=== PATIENT | male | born 1990 | race Caucasian/White ===

== ENCOUNTER 2024-09-04 13:04 | Emergency (ER) | payer OTHER, SELFPAY ==
--- NOTE | ~2024-09-04 | CT_ITS ---
EXAMINATION: CT abdomen pelvis w con DATE: 09/04/2024 14:42 INDICATION: Left lower quadrant abdominal pain. TECHNIQUE: Computed tomography (CT) of the abdomen and pelvis was performed with 100 mL Omnipaque 350 intravenous contrast. Automated exposure control and iterative reconstruction technique were employe d. The dose-length product was 1424.57 mGy-cm. COMPARISON: None. FINDINGS: The visualized portions of the lung bases demonstrate mild atelectasis. No pleural effusion . The heart size is normal. No pericardial effusion. There is diffuse hepatic steatosis. The gallblad molly, spleen, pancreas, adrenal glands, and kidneys are normal. There are bilateral inguinal hernias c ontaining fat. There is fat stranding around an epiploic appendage of distal descending colon, consis tent with epiploic appendagitis. The appendix is normal. There are no pathologically enlarged lymph n odes. There is no free intraperitoneal fluid. There is mild thoracic and lumbar spondylosis. IMPRESSION: 1. Epiploic appendagitis of distal descending colon. 2. Diffuse hepatic steatosis. Reviewed, dictated and finalized at location B.
[2024-09-04 13:09] VITALS: BP 153/87; PULSE 84; RESP 15; TEMP 36.4; O2SAT 98
--- NOTE | 2024-09-04 13:27 | ED_ITS ---
HPI - Abdominal Pain General Chief Complaint: Abdominal Pain <Milady Vega APRN - Last Filed: 09/04/24 13:39> Stated Complaint: abd pain <Milady Vega APRN - Last Filed: 09/04/24 13:39> Time Seen by Provider: 09/04/24 13:20 <Milady Vega APRN - Last Filed: 09/04/24 13:39> Focused HPI: Patient is a 34-year-old male who presents to the ER with complaints of left lower quadrant abdominal pain. He reports it started on Wednesday and has progressively gotten worse. Patient reports he went to his primary care provider earlier today who did not do any imaging and just put me on antibiotics. He reports his pain is 3/10 when he is sitting but increases to a 7 out of 10 with movement. Patient endorses diarrhea with his last bowel movement being this morning. He has no pertinent medical history related to this visit. GENERAL: Well-appearing, well-nourished, and in no acute distress. HEAD: Normocephalic, atraumatic. CHEST: Clear to auscultation. ?No respiratory distress. HEART: Regular rate and rhythm.? NEURO: ?Alert and oriented x3. Patient screened in triage and initial orders placed.? ?Additional care and disposition to be based upon?diagnostic testing and treatment. <Milady Vega APRN - Last Filed: 09/04/24 13:39> History of Present Illness HPI narrative: Agree with HPI <Gilles Barrera MD - Last Filed: 09/04/24 15:14> Related Data Home Medications: Home Medications Medication Instructions Recorded Confirmed sertraline 100 mg tablet mg 11/28/19 <Milady Vega APRN - Last Filed: 09/04/24 13:39> Allergies/Adverse Reactions: Allergies Allergy/AdvReac Type Severity Reaction Status Date / Time codeine Allergy Mild HIVES Verified 09/04/24 13:14 <Milady Vega APRN - Last Filed: 09/04/24 13:39> Review of Systems Review of Systems: All systems reviewed & are unremarkable except as noted in HPI and below <Gilles Barrera MD - Last Filed: 09/04/24 15:14> Constitutional: Constitutional: Reports no additional constitutional complaints <Gilles Barrera MD - Last Filed: 09/04/24 15:14> Cardiovascular: Cardiovascular: Reports no additional cardiovascular complaints <Gilles Barrera MD - Last Filed: 09/04/24 15:14> Respiratory: Respiratory: Reports no additional respiratory complaints <Gilles Barrera MD - Last Filed: 09/04/24 15:14> Gastrointestinal: Gastrointestinal: Reports no additional gastrointestinal complaints <Gilles Barrera MD - Last Filed: 09/04/24 15:14> Musculoskeletal: Musculoskeletal: Reports no additional musculoskeletal complaints <Gilles Barrera MD - Last Filed: 09/04/24 15:14> PMFSH Past Medical History Medical History: Medical History (Updated 09/04/24 @ 15:13 by Gilles Barrera MD) History of depression <Milady Vega, [employer] - Last Filed: 09/04/24 13:39> Social History Social History: Social History (Updated 11/28/19 @ 18:28 by Adry Grant PA-C) Smoking status: Current some day smoker Smokeless tobacco user: chewing tobacco Substance use: never <Milady Vega, [employer] - Last Filed: 09/04/24 13:39> Exam Narrative: GENERAL: Well-appearing, well-nourished, and in no acute distress. HEAD: Normocephalic, atraumatic. ENT: Mucous membranes moist. CHEST: Clear to auscultation. No respiratory distress. HEART: Regular rate and rhythm. Normal peripheral pulses. ABDOMEN: Soft, nontender, nondistended. EXTREMITIES: Normal range of motion. No edema. SKIN: Warm, dry, no rash. NEURO: Alert and oriented x3. PSYCH: Normal mood and affect. <Gilles Barrera MD - Last Filed: 09/04/24 15:14> Course Course Emergency Course: patient educated on diagnosis and treatment plan. Verbalized understanding. Does not need to take his antibiotics at home. Discharge. <Gilles Barrera MD - Last Filed: 09/04/24 15:14> Vital Signs Vital signs: Vital Signs Temperature 97.6 F 09/04/24 13:09 Pulse Rate 84 09/04/24 13:09 Respiratory Rate 15 09/04/24 13:09 Blood Pressure 153/87 H 09/04/24 13:09 Pulse Oximetry 98 09/04/24 13:09 Oxygen Delivery Room Air 09/04/24 13:09 Temperature 97.6 F 09/04/24 13:09 Pulse Rate 84 09/04/24 13:09 Respiratory Rate 15 09/04/24 13:09 Blood Pressure 153/87 H 09/04/24 13:09 Pulse Oximetry 98 09/04/24 13:09 Oxygen Delivery Room Air 09/04/24 13:09 <Milady Vega [employer] - Last Filed: 09/04/24 13:39> Vital Signs Temperature 97.6 F 09/04/24 13:09 Pulse Rate 84 09/04/24 13:09 Respiratory Rate 15 09/04/24 13:09 Blood Pressure 153/87 H 09/04/24 13:09 Pulse Oximetry 98 09/04/24 13:09 Oxygen Delivery Room Air 09/04/24 13:09 Temperature 97.6 F 09/04/24 13:09 Pulse Rate 84 09/04/24 13:09 Respiratory Rate 15 09/04/24 13:09 Blood Pressure 153/87 H 09/04/24 13:09 Pulse Oximetry 98 09/04/24 13:09 Oxygen Delivery Room Air 09/04/24 13:09 <Gilles Barrera MD - Last Filed: 09/04/24 15:14> MDM - Abdominal Pain Lab Data Result diagrams: 09/04/24 13:52 09/04/24 13:52 <Milady Vega APRN - Last Filed: 09/04/24 13:39> Labs: Lab Results 09/04/24 Range/Units 13:52 WBC 7.1 (4.5-10.0) K/mm3 RBC 5.18 (4.6-6.20) M/mm3 Hgb 15.7 (14.0-18.0) g/dL Hct 43.2 (42.0-52.0) % MCV 83.4 (80-100) fl MCH 30.3 (26-34) pg MCHC 36.3 H (32-36) g/dl RDW 12.3 (11.5-14.5) % Plt Count 369 (150-375) k/mm3 MPV 9.3 (7.4-10.4) fl Immature Gran % (Auto) 0.3 (0-0.5) % Neut % (Auto) 49.7 (45.5-73.1) % Lymph % (Auto) 39.5 (18.3-44.2) % [place] % (Auto) 8.4 (2.6-8.5) % Eos % (Auto) 1.4 (0-4.4) % Baso % (Auto) 0.7 (0.2-1.2) % Lymph # (Auto) 2.82 (0.9-3.2) K/mm3 [place] # (Auto) 0.6 (0.1-0.6) K/mm3 Eos # (Auto) 0.1 (0-0.3) K/mm3 Baso # (Auto) 0.1 (0.0-0.1) K/mm3 Abs Immat Gran (auto) 0.02 (0.00-0.031) K/mm3 Absolute Neuts (auto) 3.6 (1.3-6.7) K/mm3 Absolute Nucleated RBC 0.000 (0.0-0.012) K/mm3 Nucleated RBC % 0.0 (0.0-0.2) % PT 12.7 (11.1-14.7) Seconds INR 0.9 APTT 25.0 (22.3-36.8) Seconds Sodium 139 (137-145) mmol/L Potassium 3.8 (3.4-5.0) mmol/L Chloride 102 (98-107) mmol/L Carbon Dioxide 25 (22-30) mmol/L Anion Gap 12 (4-12) mmol/L BUN 10 (9-20) mg/dL Creatinine 0.90 (0.7-1.3) mg/dL Estim Creat Clear Calc 135 ml/min Estimated GFR > 60 (59 - ) Glucose 126 H (65-110) mg/dL Lactic Acid 1.4 (0.7-2.0) mmol/L Calcium 9.8 (8.4-10.2) mg/dL Total Bilirubin 0.6 (0.2-1.3) mg/dL AST 34 (17-59) U/L ALT 52 H (6-50) U/L Alkaline Phosphatase 73 (38-126) U/L Troponin I < 0.012 (0.000-0.034) ng/mL Total Protein 9.0 H (6.3-8.2) g/dL Albumin 4.9 (3.5-5.1) g/dL Lipase 213 (23-300) U/L Urine Color Yellow (Yellow) Urine Appearance Clear (Clear) Urine pH 7.5 (5.0-9.0) Ur Specific [place] 1.014 (1.001-1.035) Urine Protein Negative (Negative) mg/dL Urine Glucose (UA) Negative (Negative) mg/dL Urine Ketones Negative (Negative) mg/dL Ur Blood (Man) Negative (Negative) Urine Nitrate Negative (Negative) Urine Bilirubin Negative (Negative) Urine Urobilinogen 1.0 (<2.0) mg/dL Leukocyte Esterase Rfl Negative (Negative) MEAGHAN/UL <Milady Vega, [employer] - Last Filed: 09/04/24 13:39> Lab Results 09/04/24 Range/Units 13:52 WBC 7.1 (4.5-10.0) K/mm3 RBC 5.18 (4.6-6.20) M/mm3 Hgb 15.7 (14.0-18.0) g/dL Hct 43.2 (42.0-52.0) % MCV 83.4 (80-100) fl MCH 30.3 (26-34) pg MCHC 36.3 H (32-36) g/dl RDW 12.3 (11.5-14.5) % Plt Count 369 (150-375) k/mm3 MPV 9.3 (7.4-10.4) fl Immature Gran % (Auto) 0.3 (0-0.5) % Neut % (Auto) 49.7 (45.5-73.1) % Lymph % (Auto) 39.5 (18.3-44.2) % [place] % (Auto) 8.4 (2.6-8.5) % Eos % (Auto) 1.4 (0-4.4) % Baso % (Auto) 0.7 (0.2-1.2) % Lymph # (Auto) 2.82 (0.9-3.2) K/mm3 [place] # (Auto) 0.6 (0.1-0.6) K/mm3 Eos # (Auto) 0.1 (0-0.3) K/mm3 Baso # (Auto) 0.1 (0.0-0.1) K/mm3 Abs Immat Gran (auto) 0.02 (0.00-0.031) K/mm3 Absolute Neuts (auto) 3.6 (1.3-6.7) K/mm3 Absolute Nucleated RBC 0.000 (0.0-0.012) K/mm3 Nucleated RBC % 0.0 (0.0-0.2) % PT 12.7 (11.1-14.7) Seconds INR 0.9 APTT 25.0 (22.3-36.8) Seconds Sodium 139 (137-145) mmol/L Potassium 3.8 (3.4-5.0) mmol/L Chloride 102 (98-107) mmol/L Carbon Dioxide 25 (22-30) mmol/L Anion Gap 12 (4-12) mmol/L BUN 10 (9-20) mg/dL Creatinine 0.90 (0.7-1.3) mg/dL Estim Creat Clear Calc 135 ml/min Estimated GFR > 60 (59 - ) Glucose 126 H (65-110) mg/dL Lactic Acid 1.4 (0.7-2.0) mmol/L Calcium 9.8 (8.4-10.2) mg/dL Total Bilirubin 0.6 (0.2-1.3) mg/dL AST 34 (17-59) U/L ALT 52 H (6-50) U/L Alkaline Phosphatase 73 (38-126) U/L Troponin I < 0.012 (0.000-0.034) ng/mL Total Protein 9.0 H (6.3-8.2) g/dL Albumin 4.9 (3.5-5.1) g/dL Lipase 213 (23-300) U/L Urine Color Yellow (Yellow) Urine Appearance Clear (Clear) Urine pH 7.5 (5.0-9.0) Ur Specific [place] 1.014 (1.001-1.035) Urine Protein Negative (Negative) mg/dL Urine Glucose (UA) Negative (Negative) mg/dL Urine Ketones Negative (Negative) mg/dL Ur Blood (Man) Negative (Negative) Urine Nitrate Negative (Negative) Urine Bilirubin Negative (Negative) Urine Urobilinogen 1.0 (<2.0) mg/dL Leukocyte Esterase Rfl Negative (Negative) MEAGHAN/UL <Gilles Barrera MD - Last Filed: 09/04/24 15:14> Imaging Data Radiologist's impression: ITS Impressions Abdomen/Pelvis CT 09/04/24 14:44 IMPRESSION: 1. Epiploic appendagitis of distal descending colon. 2. Diffuse hepatic steatosis. <Milady Vega APRN - Last Filed: 09/04/24 13:39> ITS Impressions Abdomen/Pelvis CT 09/04/24 14:44 IMPRESSION: 1. Epiploic appendagitis of distal descending colon. 2. Diffuse hepatic steatosis. <Gilles Barrera MD - Last Filed: 09/04/24 15:14> Discharge Plan Discharge Clinical Impression: Epiploic appendagitis <Milady Vega APRN - Last Filed: 09/04/24 13:39> Patient Disposition: Home, Self-Care <Milady Vega APRN - Last Filed: 09/04/24 13:39> Condition: Stable <Milady Vega APRN - Last Filed: 09/04/24 13:39> Instructions: Epiploic Appendagitis (ED) <Milady Vega APRN - Last Filed: 09/04/24 13:39> Additional Instructions: Take Tylenol and ibuprofen as needed for pain. Return the ER if you have fever 100.4? F, you cannot keep down food/ water / medication, or you have additional concerns. <Milady Vega APRN - Last Filed: 09/04/24 13:39> Prescriptions: No Action sertraline 100 mg tablet cyclobenzaprine 10 mg tablet 10 mg PO TID PRN (Reason: muscle spasm) Qty: 10 0RF <Milady Vega APRN - Last Filed: 09/04/24 13:39> Follow-up/Referrals: Ze,Shimon Washington MD [Primary Care Provider] - 1 Week <Milady Vega APRN - Last Filed: 09/04/24 13:39>
[2024-09-04 14:04] LABS: Basophils Absolute Auto 0.1 K/mm3 (0.0-0.1); Basophils Percent Auto 0.7 % (0.2-1.2); Eosinophils Absolute Auto 0.1 K/mm3 (0-0.3); Eosinophils Percent Auto 1.4 % (0-4.4); Hematocrit 43.2 % (42.0-52.0); Hemoglobin 15.7 g/dL (14.0-18.0); Immature Granulocyte Absolute 0.02 K/mm3 (0.00-0.031); Immature Granulocyte Percent A 0.3 % (0-0.5); Lymphocytes Absolute Auto 2.82 K/mm3 (0.9-3.2); Lymphocytes Percent Auto 39.5 % (18.3-44.2); Mean Corpuscular HGB Conc 36.3 g/dl (32-36); Mean Corpuscular Hemoglobin 30.3 pg (26-34); Mean Corpuscular Volume 83.4 fl (80-100); Mean Platelet Volume 9.3 fl (7.4-10.4); Monocytes Absolute Auto 0.6 K/mm3 (0.1-0.6); Monocytes Percent Auto 8.4 % (2.6-8.5); Neutrophils Absolute Auto 3.6 K/mm3 (1.3-6.7); Neutrophils Percent Auto 49.7 % (45.5-73.1); Platelet Count Result 369 k/mm3 (150-375); Red Blood Count 5.18 M/mm3 (4.6-6.20); Red Cell Distribution Width 12.3 % (11.5-14.5); White Blood Count 7.1 K/mm3 (4.5-10.0)
[2024-09-04 14:10] LABS: Add Urine Microscopic? NO; Appearance Urine Clear (Clear); Bilirubin Urine Negative (Negative); Blood Urine Negative (Negative); Color Urine Yellow (Yellow); Glucose Urine UA Negative (Negative); Ketones Urine Negative (Negative); Leukocyte Esterase Ur Negative LEU/UL (Negative); Nitrate Urine Negative (Negative); Protein Urine Negative (Negative); Specific Grav Ur 1.014 (1.001-1.035); pH Urine 7.5 (5.0-9.0)
[2024-09-04 14:13] LABS: Lactic Acid Reflex 1.4 mmol/L (0.7-2.0)
[2024-09-04] MEDS: SODIUM CHLORIDE 0.9% IV 1,000 ML 999 ML IV CONT (14:14)
[2024-09-04 14:15] LABS: INR 0.9; Prothrombin Time 12.7 Seconds (11.1-14.7)
[2024-09-04 14:16] LABS: Alanine Aminotransferase 52 U/L (6-50); Albumin Level 4.9 g/dL (3.5-5.1); Alkaline Phosphatase 73 U/L (38-126); Anion Gap 12 mmol/L (4-12); Aspartate Amino Transferase 34 U/L (17-59); Bilirubin,Total 0.6 mg/dL (0.2-1.3); Blood Urea Nitrogen 10 mg/dL (9-20); Calcium 9.8 mg/dL (8.4-10.2); Carbon Dioxide 25 mmol/L (22-30); Chloride 102 mmol/L (98-107); Estimated CRCL calculation 135 ml/min; Estimated Glomerular Filt Rate > 60; Glucose 126 mg/dL (65-110); Lipase 213 U/L (23-300); Potassium 3.8 mmol/L (3.4-5.0); Sodium 139 mmol/L (137-145)
[2024-09-04 14:26] LABS: Troponin I < 0.012 ng/mL (0.000-0.034)
== END 2024-09-04 15:24 | disposition home or self-care (01) ==
PROVIDERS: Registered Nurse; Emergency Provider Emergency Medicine; PCP Internal Medicine
DX: K63.89 Other specified diseases of intestine (principal); Z72.0 Tobacco use
CPT/HCPCS: 36415; 74177; 80053; 81003; 83605; 83690; 84484; 85025; 85610; 85730; 96360; 99284; J7030; Q9967